=== PATIENT | female | born 1935 | race Hispanic/Latino ===

== ENCOUNTER 2020-10-04 12:43 | Inpatient (IN) | payer MEDICAID, MEDICARE ==
[2020-10-04 13:21] LABS: #Eosinphils 0.5 thou/uL (0.0-0.7); #Lymphocytes 2.3 thou/uL (1.20-3.40); #Monocytes 0.6 thou/uL (0.11-0.59); #Neutrophils 3.1 thou/uL (1.40-6.50); %Basophils 0.5 % (0.0-1.0); %Eosinophils 7.8 % (0.0-10.0); %Lymphocytes 35.7 % (21.0-51.0); %Monocytes 8.7 % (0.0-10.0); %Neutrophils 47.3 % (42.0-75.0); Hemoglobin 15.1 g/dL (12.0-16.0); Mean Corpuscular HGB CONC 32.8 g/dL (32.0-36.0); Mean Corpuscular Hemoglobin 30.8 pg (27.0-31.0); Mean Corpuscular Volume 93.9 fL (78.0-98.0); Mean Platelet Volume 9.3 fL (7.4-10.4); Platelet Count 180 thou/uL (130-400); RBC Distribution Width 13.8 % (11.5-14.5); Red Blood Cell (RBC) Count 4.89 mill/uL (4.20-5.40); White Blood Cell (WBC) Count 6.5 thou/uL (4.8-10.8)
[2020-10-04 13:34] LABS: ALT (SGPT) 15 U/L (8-55); AST (SGOT) 27 U/L (5-34); Albumin 3.6 g/dL (3.4-4.8); Alkaline Phosphatase 73 U/L (40-110); Anion Gap 19 mmol/L (10-20); BUN (Urea Nitrogen) 25 mg/dL (9.8-20.1); Bilirubin, Total 0.7 mg/dL (0.2-1.2); Calc. Creatinine Clearance 0 mL/min (70-130); Calcium 9.1 mg/dL (7.8-10.44); Carbon Dioxide 18 mmol/L (23-31); Chloride 105 mmol/L (98-107); Globulin 4.1 g/dL (2.4-3.5); Glucose 120 mg/dL (83-110); Potassium 5.1 mmol/L (3.5-5.1); Protein, Total 7.7 g/dL (5.8-8.1); Sodium 137 mmol/L (136-145)
[2020-10-04] MEDS ORDERED: Aspirin Chewable 81 MG TAB ONE (15:22)
[2020-10-04] MEDS ORDERED: Furosemide 40 MG/4 ML VIAL ONE (15:37)
[2020-10-04] MEDS ORDERED: Diltiazem HCl 125 MG, Admixture Fee 1 EACH in Sodium Chloride 0.9% 100 ML IVPB SCH (16:30)
[2020-10-04 16:41] LABS: Troponin I Less than 0.010 ng/mL (< 0.028)
[2020-10-04 19:59] LABS: Troponin I 0.011 ng/mL (< 0.028)
[2020-10-04] MEDS ORDERED: HYDROcodone/Acetaminophen 5/325 mg Tablet PO PRN (21:38)
[2020-10-04] MEDS ORDERED: Bisacodyl 5 MG TAB PO PRN (21:38)
[2020-10-04] MEDS ORDERED: Ondansetron PF 4 MG/2 ML Vial IVP PRN (21:38)
[2020-10-04] MEDS ORDERED: Acetaminophen 325 MG TAB PO PRN (21:38)
[2020-10-04] MEDS ORDERED: hydrALAZINE 20 MG/ML VIAL SLOW IVP PRN (21:41)
[2020-10-04 22:46] LABS: Troponin I 0.011 ng/mL (< 0.028)
[2020-10-04 23:11] VITALS: BMI 30.4
[2020-10-05 01:58] LABS: Troponin I 0.013 ng/mL (< 0.028)
[2020-10-05 02:16] LABS: SARS-CoV-2 PCR by NAA Not Detected (NotDetected)
[2020-10-05 05:28] LABS: Mean Corpuscular HGB CONC 32.9 g/dL (32.0-36.0); Mean Corpuscular Hemoglobin 31.1 pg (27.0-31.0); Mean Corpuscular Volume 94.6 fL (78.0-98.0); Mean Platelet Volume 9.8 fL (7.4-10.4); Platelet Count 160 thou/uL (130-400); RBC Distribution Width 13.7 % (11.5-14.5); White Blood Cell (WBC) Count 6.4 thou/uL (4.8-10.8)
[2020-10-05 05:34] LABS: Albumin 3.3 g/dL (3.4-4.8); Anion Gap 17 mmol/L (10-20); BUN (Urea Nitrogen) 28 mg/dL (9.8-20.1); BUN/Creatinine Ratio 13.53; Calc. Creatinine Clearance 23 mL/min (70-130); Carbon Dioxide 20 mmol/L (23-31); Cardiac Risk 6.3 (Less than 4.5); Chloride 105 mmol/L (98-107); Cholesterol 238 mg/dl (< 200 Desired); Glucose 117 mg/dL (83-110); HDL Cholesterol 38 mg/dL (>60 Neg Risk); LDL Cholesterol, Calculated 182 mg/dL; Magnesium 2.1 mg/dL (1.6-2.6); Phosphorus 3.8 mg/dL (2.3-4.7); Sodium 138 mmol/L (136-145); Triglycerides 89 mg/dL (Less than 150)
[2020-10-05 05:58] LABS: Band 2 % (5-11); Eosinophils 5 % (0-10); Lymphocytes 33 % (21-51); MDiff Complete? YES; Monocytes 12 % (0-10); Neutrophil 47 % (42-75)
[2020-10-05] MEDS: Apixaban 2.5 MG TAB PO SCH ×2 (09:14→21:10)
[2020-10-05] MEDS: Metoprolol Tartrate 25 MG TAB PO SCH ×2 (09:14→21:10)
[2020-10-05] MEDS: Aspirin Chewable 81 MG TAB PO SCH (09:14)
[2020-10-05] MEDS: Sodium Bicarbonate Tab 325 MG TAB PO SCH ×2 (09:14→21:09)
[2020-10-05] MEDS: Famotidine 20 MG TAB PO SCH (09:14)
[2020-10-05] MEDS: Atorvastatin Calcium 10 MG TAB PO SCH (21:10)
[2020-10-06 04:56] LABS: #Eosinphils 0.4 thou/uL (0.0-0.7); #Lymphocytes 1.9 thou/uL (1.20-3.40); #Monocytes 0.7 thou/uL (0.11-0.59); #Neutrophils 2.9 thou/uL (1.40-6.50); %Basophils 0.8 % (0.0-1.0); %Eosinophils 7.6 % (0.0-10.0); %Lymphocytes 31.8 % (21.0-51.0); %Neutrophils 48.8 % (42.0-75.0); Hemoglobin 12.7 g/dL (12.0-16.0); Mean Corpuscular HGB CONC 32.5 g/dL (32.0-36.0); Mean Corpuscular Hemoglobin 30.9 pg (27.0-31.0); Mean Corpuscular Volume 94.9 fL (78.0-98.0); Mean Platelet Volume 9.7 fL (7.4-10.4); Platelet Count 165 thou/uL (130-400); RBC Distribution Width 13.9 % (11.5-14.5); Red Blood Cell (RBC) Count 4.12 mill/uL (4.20-5.40); White Blood Cell (WBC) Count 5.9 thou/uL (4.8-10.8)
[2020-10-06 05:23] LABS: Hemoglobin A1c 6.4 % (4.0-6.0)
[2020-10-06 06:27] LABS: Anion Gap 17 mmol/L (10-20); BUN (Urea Nitrogen) 32 mg/dL (9.8-20.1); Calc. Creatinine Clearance 21 mL/min (70-130); Calcium 8.9 mg/dL (7.8-10.44); Carbon Dioxide 18 mmol/L (23-31); Chloride 107 mmol/L (98-107); Glucose 117 mg/dL (83-110); Magnesium 2.1 mg/dL (1.6-2.6); Potassium 4.3 mmol/L (3.5-5.1); Sodium 138 mmol/L (136-145)
[2020-10-06] MEDS: Aspirin Chewable 81 MG TAB PO SCH (08:31)
[2020-10-06] MEDS: Apixaban 2.5 MG TAB PO SCH ×2 (08:31→20:41)
[2020-10-06] MEDS: Famotidine 20 MG TAB PO SCH (08:31)
[2020-10-06] MEDS: Sodium Bicarbonate Tab 325 MG TAB PO SCH ×2 (08:31→20:41)
[2020-10-06] MEDS: Amiodarone 200 MG TAB PO SCH (08:31)
[2020-10-06] MEDS: Metoprolol Tartrate 25 MG TAB PO SCH ×2 (08:31→20:41)
[2020-10-06] MEDS ORDERED: Non-Formulary Item 1 EACH (Amiodarone Hcl [Pacerone] 100 MG Tablet) PO SCH (09:00)
[2020-10-06] MEDS ORDERED: Diltiazem HCl 125 MG, Admixture Fee 1 EACH in Sodium Chloride 0.9% 100 ML IVPB SCH (16:00)
[2020-10-06] MEDS: Atorvastatin Calcium 10 MG TAB PO SCH (20:41)
[2020-10-06 22:19] LABS: Creatinine, Urine 152.37 mg/dL (47-110)
[2020-10-07] MEDS: Metoprolol Tartrate 25 MG TAB PO SCH ×2 (08:12→20:38)
[2020-10-07] MEDS: Amiodarone 200 MG TAB PO SCH (08:12)
[2020-10-07] MEDS: Apixaban 2.5 MG TAB PO SCH ×2 (08:12→20:38)
[2020-10-07] MEDS: Sodium Bicarbonate Tab 325 MG TAB PO SCH ×2 (08:12→20:38)
[2020-10-07] MEDS: Famotidine 20 MG TAB PO SCH (08:12)
[2020-10-07] MEDS: Aspirin Chewable 81 MG TAB PO SCH (08:12)
[2020-10-07 08:38] LABS: #Basophils 0.1 thou/uL (0.0-0.2); #Eosinphils 0.5 thou/uL (0.0-0.7); #Lymphocytes 2.6 thou/uL (1.20-3.40); #Monocytes 0.6 thou/uL (0.11-0.59); #Neutrophils 3.5 thou/uL (1.40-6.50); %Basophils 0.9 % (0.0-1.0); %Eosinophils 6.7 % (0.0-10.0); %Lymphocytes 35.9 % (21.0-51.0); %Monocytes 8.3 % (0.0-10.0); %Neutrophils 48.2 % (42.0-75.0); Mean Corpuscular HGB CONC 32.3 g/dL (32.0-36.0); Mean Corpuscular Volume 95.8 fL (78.0-98.0); Mean Platelet Volume 10.1 fL (7.4-10.4); Platelet Count 142 thou/uL (130-400); RBC Distribution Width 13.8 % (11.5-14.5); Red Blood Cell (RBC) Count 3.86 mill/uL (4.20-5.40); White Blood Cell (WBC) Count 7.3 thou/uL (4.8-10.8)
[2020-10-07 10:43] LABS: Anion Gap 14 mmol/L (10-20); BUN (Urea Nitrogen) 36 mg/dL (9.8-20.1); Calc. Creatinine Clearance 21 mL/min (70-130); Calcium 8.7 mg/dL (7.8-10.44); Carbon Dioxide 24 mmol/L (23-31); Chloride 106 mmol/L (98-107); Glucose 159 mg/dL (83-110); Magnesium 2.2 mg/dL (1.6-2.6); Potassium 4.5 mmol/L (3.5-5.1); Sodium 139 mmol/L (136-145)
[2020-10-07] MEDS ORDERED: Sodium Chloride 0.9% 250 ML IV SCH (13:00)
[2020-10-07 19:37] LABS: Bacteria/HPF None Seen HPF (None Seen); Bilirubin Negative (Negative); Blood, Urine Negative (Negative); Clarity Turbid (Clear); Glucose, Urine (Dipstick) Normal (Negative); Ketone, Urine Negative (Negative); Leukocyte 250 Leu/uL (Negative); Nitrite Negative (Negative); Protein, Urine (Dipstick) 20 mg/dL (Neg-Trace); RBC/HPF 0-3 HPF (0-3); Specific Gravity, Urine 1.021 (1.002-1.036); Urobilinogen Normal mg/dL (Less than 2); pH, Urine 6.5 (5.0-9.0)
[2020-10-07 19:38] LABS: Urine Culture Reflex No No
[2020-10-07] MEDS: Atorvastatin Calcium 10 MG TAB PO SCH (20:38)
[2020-10-08 04:51] LABS: #Basophils 0.1 thou/uL (0.0-0.2); #Eosinphils 0.4 thou/uL (0.0-0.7); #Lymphocytes 2.2 thou/uL (1.20-3.40); #Monocytes 0.6 thou/uL (0.11-0.59); #Neutrophils 2.4 thou/uL (1.40-6.50); %Eosinophils 7.6 % (0.0-10.0); %Lymphocytes 38.2 % (21.0-51.0); %Monocytes 10.7 % (0.0-10.0); %Neutrophils 42.5 % (42.0-75.0); Hemoglobin 13.3 g/dL (12.0-16.0); Mean Corpuscular HGB CONC 34.2 g/dL (32.0-36.0); Mean Corpuscular Hemoglobin 32.3 pg (27.0-31.0); Mean Corpuscular Volume 94.5 fL (78.0-98.0); Mean Platelet Volume 9.6 fL (7.4-10.4); Platelet Count 154 thou/uL (130-400); RBC Distribution Width 13.6 % (11.5-14.5); Red Blood Cell (RBC) Count 4.12 mill/uL (4.20-5.40); White Blood Cell (WBC) Count 5.7 thou/uL (4.8-10.8)
[2020-10-08 05:18] LABS: Anion Gap 11 mmol/L (10-20); BUN (Urea Nitrogen) 32 mg/dL (9.8-20.1); Calc. Creatinine Clearance 24 mL/min (70-130); Calcium 8.6 mg/dL (7.8-10.44); Carbon Dioxide 22 mmol/L (23-31); Chloride 108 mmol/L (98-107); Glucose 109 mg/dL (83-110); Potassium 4.3 mmol/L (3.5-5.1); Sodium 137 mmol/L (136-145)
[2020-10-08 07:55] VITALS: TEMP 97.7
[2020-10-08] MEDS: Sodium Bicarbonate Tab 325 MG TAB PO SCH (09:29)
[2020-10-08] MEDS: Amiodarone 200 MG TAB PO SCH (09:29)
[2020-10-08] MEDS: Aspirin Chewable 81 MG TAB PO SCH (09:29)
[2020-10-08] MEDS: Apixaban 2.5 MG TAB PO SCH (09:30)
[2020-10-08] MEDS: Metoprolol Tartrate 25 MG TAB PO SCH (09:30)
[2020-10-08 13:10] VITALS: BP 124/69
== END 2020-10-08 12:55 | disposition home or self-care (01) | DRG 291 ==
LOC: ERS 12:43 → ERHOLD 15:54 → 2NO 21:59
PROVIDERS: ADMIT Internal Medicine; ATTEND Internal Medicine
DX: I13.0 Hypertensive heart and chronic kidney disease with heart failure and stage 1 through stage 4 chronic kidney disease, or unspecified chronic kidney disease (principal); J18.9 Pneumonia, unspecified organism; I50.23 Acute on chronic systolic (congestive) heart failure; N17.9 Acute kidney failure, unspecified; E87.2 Acidosis; I48.20 Chronic atrial fibrillation, unspecified; R26.2 Difficulty in walking, not elsewhere classified; N18.9 Chronic kidney disease, unspecified; E03.9 Hypothyroidism, unspecified; I25.10 Atherosclerotic heart disease of native coronary artery without angina pectoris; Z20.822 Contact with and (suspected) exposure to COVID-19; Z88.0 Allergy status to penicillin; Z79.899 Other long term (current) drug therapy; Z95.5 Presence of coronary angioplasty implant and graft; Z79.01 Long term (current) use of anticoagulants
CPT/HCPCS: 36415; 36416; 71045; 80048; 80053; 80061; 80069; 81001; 82570; 83036; 83735; 83880; 84156; 84439; 84443; 84484; 85007; 85025; 85027; 85379; 87635; 93005; 93306; 94760; 96365; 96366; 96375; 96376; J1940; J3490; U0003; U0005

== ENCOUNTER 2020-10-27 10:20 | Outpatient (CLI) | payer MEDICARE | END 2020-10-27 10:21 | disposition home or self-care (01) | LOC: NM 10:20 | PROVIDERS: ATTEND Internal Medicine Cardiovascular Disease | DX: I25.10 Atherosclerotic heart disease of native coronary artery without angina pectoris (principal) | CPT/HCPCS: 78466; A9505 ==